=== PATIENT | male | born 1930 | race Caucasian/White ===

== ENCOUNTER 2020-10-10 18:26 | Emergency (ER) | payer OTHER, MEDICARE ==
[~2020-10-10] VITALS: Ht 200.7 cm; Wt 100.0 kg
[2020-10-10] MEDS ORDERED: LIDOcaine 1% W/epiNEPHrine 1:200,000 10ml vial IJ ONE (19:10)
[2020-10-10] MEDS ORDERED: TETanus/Pertussis (Acell)/Diphther VAC/PF (Tdap-Adult) 0.5ml syringe IMVAC ONE (19:10)
[2020-10-10 21:05] VITALS: BP 174/97
== END 2020-10-10 21:06 | disposition home or self-care (01) ==
LOC: ER 18:27
DX: S02.40DA Maxillary fracture, left side, initial encounter for closed fracture (principal); S01.81XA Laceration without foreign body of other part of head, initial encounter; S16.1XXA Strain of muscle, fascia and tendon at neck level, initial encounter; F17.200 Nicotine dependence, unspecified, uncomplicated; W18.39XA Other fall on same level, initial encounter; Y93.89 Activity, other specified; Y92.89 Other specified places as the place of occurrence of the external cause; Y99.8 Other external cause status
CPT/HCPCS: 12001; 12011; 70450; 70486; 72125; 90471; 90715; 99285

== ENCOUNTER 2020-10-12 16:09 | Emergency (ER) | payer OTHER, MEDICARE ==
[~2020-10-12] VITALS: Ht 200.7 cm; Wt 90.9 kg
[2020-10-12 17:59] VITALS: BP 163/87
--- NOTE | 2020-10-12 18:00 | NUR ---
PA IN ROOM TO DISCUSS DC WITH PT.
== END 2020-10-12 18:35 | disposition home or self-care (01) ==
LOC: ER 16:10
DX: M25.551 Pain in right hip (principal); W01.0XXA Fall on same level from slipping, tripping and stumbling without subsequent striking against object, initial encounter; Z91.81 History of falling; Y93.89 Activity, other specified; Y92.89 Other specified places as the place of occurrence of the external cause; Y99.8 Other external cause status
CPT/HCPCS: 73502; 99284